=== PATIENT | female | born 1990 | race Caucasian/White ===

== ENCOUNTER 2018-04-30 12:54 | Emergency (ER) | payer MEDICAID ==
[2018-04-30] MEDS ORDERED: DULoxetine 30 MG Cap PO ONE (13:40)
--- NOTE | 2018-04-30 13:43 | EDM.PDOCBH ---
ED HPI GENERAL MEDICAL PROBLEM - General Chief Complaint: Behavioral/Psych Stated Complaint: WITHDRAWL FROM MEDICATION Time Seen by Provider: 04/30/18 13:38 Source of Information: Reports: Patient History Limitations: Reports: No Limitations - History of Present Illness INITIAL COMMENTS - FREE TEXT/NARRATIVE: Has been on Cymbalta x 1 year for fibromyalgia. Moved here 3 weeks ago and needs to get back on her meds. Ran out of meds a week ago. Having withdrawal and hot flashes. Onset: Gradual Duration: Getting Worse Severity: Moderate Improves with: Reports: None Worsens with: Reports: None Context: Reports: Other (ran out of meds) Associated Symptoms: Reports: Nausea/Vomiting, Weakness Generalized Pain Score (Numeric/FACES): 6 - Related Data Allergies Allergy/AdvReac Type Severity Reaction Status Date / Time morphine Allergy Hives Verified 07/19/14 11:42 Home Meds: Home Meds NK [No Known Home Meds] 07/19/14 [History] Past Medical History Respiratory History: Reports: Asthma Gastrointestinal History: Reports: Other (See Below) Other Gastrointestinal History: nausea and diarrhea Musculoskeletal History: Reports: Fibromyalgia Neurological History: Reports: Migraines Psychiatric History: Reports: Depression Dermatologic History: Reports: Eczema Social & Family History - Tobacco Use Smoking Status *Q: Current Every Day Smoker Years of Tobacco use: 10 Packs/Tins Daily: 1 - Caffeine Use Caffeine Use: Reports: Coffee - Recreational Drug Use Recreational Drug Use: No ED ROS GENERAL - Review of Systems Review Of Systems: See Below Constitutional: Reports: No Symptoms HEENT: Reports: No Symptoms Respiratory: Reports: No Symptoms Cardiovascular: Reports: Palpitations Endocrine: Reports: No Symptoms GI/Abdominal: Reports: Nausea, Vomiting (today) : Reports: No Symptoms Musculoskeletal: Reports: No Symptoms Skin: Reports: No Symptoms Psychiatric: Reports: Mood Lability Hematologic/Lymphatic: Reports: No Symptoms Immunologic: Reports: No Symptoms ED EXAM, BEHAVIORAL HEALTH - Physical Exam Exam: See Below Exam Limited By: No Limitations General Appearance: Alert, WD/WN, No Apparent Distress Ears: Normal External Exam, Normal Canal, Hearing Grossly Normal, Normal TMs Nose: Normal Inspection, Normal Mucosa, No Blood Throat/Mouth: Normal Inspection, Normal Lips, Normal Teeth, Normal Gums, Normal Oropharynx, Normal Voice, No Airway Compromise Head: Atraumatic, Normocephalic Neck: Normal Inspection, Supple, Non-Tender, Full Range of Motion Respiratory/Chest: No Respiratory Distress, Lungs Clear, Normal Breath Sounds, No Accessory Muscle Use, Chest Non-Tender Cardiovascular: Normal Peripheral Pulses, Regular Rate, Rhythm, No Edema, No Gallop, No JVD, No Murmur, No Rub GI/Abdominal: Normal Bowel Sounds, Soft, Non-Tender, No Organomegaly, No Distention, No Abnormal Bruit, No Mass Back Exam: Normal Inspection, Full Range of Motion, NT Extremities: Normal Inspection, Normal Range of Motion, Non-Tender, Normal Capillary Refill, No Pedal Edema Neurological: Alert, Normal Mood/Affect, CN II-XII Intact, Normal Cognition, Normal Gait, Normal Reflexes, No Motor/Sensory Deficits, Oriented x 3 Psychiatric: Other (mood labile, requests to resume meds) COURSE, BEHAVIORAL HEALTH COMP - Course Vital Signs: Last Vital Signs Temp 97.4 F 04/30/18 13:24 Pulse 95 04/30/18 13:24 Resp 18 04/30/18 13:24 BP 137/80 04/30/18 13:24 Pulse Ox Departure - Departure Time of Disposition: 13:43 Disposition: Home, Self-Care 01 Condition: Good Clinical Impression: Fibromyalgia - Discharge Information *PRESCRIPTION DRUG MONITORING PROGRAM REVIEWED*: Not Applicable *COPY OF PRESCRIPTION DRUG MONITORING REPORT IN PATIENT JUAN R: Not Applicable Instructions: Myofascial Pain Syndrome and Fibromyalgia Referrals: PCP,None [Primary Care Provider] - Additional Instructions: Cymbalta 60mg po given today in ER. Pt to resume meds. Discussed timing of meds and the need to establish with primary care. - Problem List & Annotations (1) Fibromyalgia SNOMED Code(s): 070168388 Code(s): M79.7 - FIBROMYALGIA Status: Acute Priority: Low Current Visit : Yes
== END 2018-04-30 14:43 | disposition home or self-care (01) ==
LOC: JP.ED 12:54
DX: M79.7 Fibromyalgia (principal); J45.909 Unspecified asthma, uncomplicated; F17.210 Nicotine dependence, cigarettes, uncomplicated; Z88.5 Allergy status to narcotic agent; Z79.899 Other long term (current) drug therapy
CPT/HCPCS: 99283; A9270

== ENCOUNTER 2020-04-09 08:49 | Emergency (ER) | payer MEDICAID ==
--- NOTE | 2020-04-09 09:25 | EDM.PDOC ---
ED HPI GENERAL MEDICAL PROBLEM - General Chief Complaint: Respiratory Problem Stated Complaint: SOB Time Seen by Provider: 04/09/20 09:06 Source of Information: Reports: Patient History Limitations: Reports: No Limitations - History of Present Illness INITIAL COMMENTS - FREE TEXT/NARRATIVE: 29-year-old female who is a chronic fairly heavy smoker, getting half a day, has had 10 days to 14 days of increasing shortness of breath, wheezing, cough, generalized malaise and body aches. No fevers or chills. She is concerned about the possibility of COVID. No sore throat. This morning she woke up, hurt all over and had a moderate headache and a pressure in her anterior chest so instead of going to work she came here. She did take an inhaler dose of albuterol at 7 AM. Onset: Gradual Duration: Week(s): (2 weeks) Associated Symptoms: Reports: Cough, Headaches, Shortness of Breath, Other (Generalized malaise and body aches). Denies: Fever/Chills Chest Pain Score (Numeric/FACES): 6 - Related Data Allergies Allergy/AdvReac Type Severity Reaction Status Date / Time morphine Allergy Hives Verified 04/09/20 08:56 Home Meds: Home Meds Albuterol [Ventolin HFA] 2 puff INH Q4H PRN 04/09/20 [History] Azithromycin [Zithromax] 250 mg PO DAILY 5 Days #6 tablet 04/09/20 [Rx] Past Medical History Respiratory History: Reports: Asthma Gastrointestinal History: Reports: Other (See Below) Other Gastrointestinal History: nausea and diarrhea Musculoskeletal History: Reports: Fibromyalgia Neurological History: Reports: Migraines Psychiatric History: Reports: Depression Dermatologic History: Reports: Eczema Social & Family History - Tobacco Use Smoking Status *Q: Current Every Day Smoker Years of Tobacco use: 12 Packs/Tins Daily: 1.5 - Caffeine Use Caffeine Use: Reports: Coffee, Energy Drinks - Recreational Drug Use Recreational Drug Use: No ED ROS GENERAL - Review of Systems Review Of Systems: See Below Constitutional: Reports: Malaise, Weakness. Denies: Fever, Chills HEENT: Denies: Throat Pain Respiratory: Reports: Shortness of Breath, Cough. Denies: Sputum Cardiovascular: Reports: Chest Pain Endocrine: Reports: Fatigue GI/Abdominal: Denies: Nausea, Vomiting : Reports: No Symptoms Musculoskeletal: Reports: Muscle Pain (Generalized muscle aches) Skin: Reports: No Symptoms Neurological: Reports: Headache ED EXAM, GENERAL - Physical Exam Exam: See Below Exam Limited By: No Limitations General Appearance: Alert, No Apparent Distress Eye Exam: Bilateral Eye: Normal Inspection Head: Atraumatic Respiratory/Chest: No Respiratory Distress, Lungs Clear Cardiovascular: Regular Rate, Rhythm. No: Extra Beats GI/Abdominal: Soft, Non-Tender Extremities: Normal Inspection. No: Pedal Edema Neurological: Alert, Oriented Course - Vital Signs Last Recorded V/S: Last Vital Signs Temp 96.6 F L 04/09/20 09:01 Pulse 90 04/09/20 09:01 Resp 14 04/09/20 09:01 BP 127/79 04/09/20 09:01 Pulse Ox 96 04/09/20 09:01 - Orders/Labs/Meds Orders: Active Orders 24 hr Category Date Time Status CORONAVIRUS COVID-19, RAY Stat Lab 04/09/20 09:22 Ordered - Re-Assessments/Exams Free Text/Narrative Re-Assessment/Exam: 04/09/20 09:23 Vitals are completely normal, pulse is 88, O2 saturations 96 to 98% on room air and respiratory rate normal. Temperature is 96.6. On exam I can only elicit wheezing on forced expiration. Patient has had bacterial bronchitis in the past which "did respond" to antibiotics, she is not only concerned about that but the possibility of COVID. A COVID test was drawn, she will be placed on Zithromax over the weekend and recheck with her primary provider next week if not improving satisfactorily. She needs to cut back on her smoking, and a daily dose of preventative asthma medication such as Advair or Symbicort may be worthwhile. She can do this with her primary next week. Departure - Departure Time of Disposition: 09:45 Disposition: Home, Self-Care 01 Clinical Impression: Bronchitis - Discharge Information Prescriptions: Azithromycin [Zithromax] 250 mg PO DAILY 5 Days #6 tablet Instructions: Acute Bronchitis, Adult, [id number] Referrals: PCP,None [Primary Care Provider] - Forms: ED Department Discharge Care Plan Goals: Take antibiotic as prescribed through the weekend, try to reduce smoking and get plenty of rest and fluids. Recheck with your primary provider next week to discuss preventative treatment for asthma after your COVID test returns. Sepsis Event Note (ED) - Evaluation Sepsis Screening Result: No Definite Risk - Focused Exam Vital Signs: Vital Signs Temp Pulse Resp BP Pulse Ox 04/09/20 09:01 96.6 F L 90 14 127/79 96 - My Orders Last 24 Hours: My Active Orders 04/09/20 09:22 CORONAVIRUS COVID-19, RYA Stat - Assessment/Plan Last 24 Hours: My Active Orders 04/09/20 09:22 CORONAVIRUS COVID-19, RAY Stat
== END 2020-04-09 09:45 | disposition home or self-care (01) ==
LOC: JP.ED 08:49
DX: J40 Bronchitis, not specified as acute or chronic (principal); F17.210 Nicotine dependence, cigarettes, uncomplicated; Z88.5 Allergy status to narcotic agent; Z20.828 Contact with and (suspected) exposure to other viral communicable diseases
CPT/HCPCS: 99283; U0002

== ENCOUNTER 2020-10-07 16:00 | Emergency (ER) | payer MEDICAID ==
--- NOTE | 2020-10-07 16:14 | EDM.PDOC ---
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 She was sob and she did do a oximeter which was 88. She has a history of asthma but did not seem to be wheezing alot at the time. Onset: Today, Sudden Duration: Hour(s): Location: Reports: Chest, Other (pt has been on a recent [address] trip. ) Associated Symptoms: Reports: Other ( she is feeling tight in her chest. ) Chest Pain Score (Numeric/FACES): 5 - Related Data Allergies Allergy/AdvReac Type Severity Reaction Status Date / Time morphine Allergy Hives Verified 10/07/20 16:40 Home Meds: Home Meds Albuterol [Ventolin HFA] 2 puff INH Q4H PRN 04/09/20 [History] Fluticasone Propion/Salmeterol [Advair Hfa 45-21 Mcg Inhaler] 2 puff IH BID 10/07/20 [History] Past Medical History Respiratory History: Reports: Asthma Gastrointestinal History: Reports: Other (See Below) Other Gastrointestinal History: nausea and diarrhea Musculoskeletal History: Reports: Fibromyalgia Neurological History: Reports: Migraines Psychiatric History: Reports: Depression Dermatologic History: Reports: Eczema Social & Family History - Caffeine Use Caffeine Use: Reports: Coffee, Energy Drinks ED ROS GENERAL - Review of Systems Review Of Systems: See Below Constitutional: Reports: No Symptoms HEENT: Reports: No Symptoms Respiratory: Reports: Shortness of Breath, Other ( tight in the middle of the chest. ) Cardiovascular: Reports: Dyspnea on Exertion, Lightheadedness Endocrine: Reports: No Symptoms GI/Abdominal: Reports: No Symptoms : Reports: No Symptoms Musculoskeletal: Reports: No Symptoms Skin: Reports: No Symptoms ED EXAM, GENERAL - Physical Exam Exam: See Below Free Text/Narrative:: pt arrived feeling tightness in her chest. She has a history of a 10 hour car ride recentyly there was concern regarding a pulmonary emboli. She was very lite headed and nearly passed out. Exam Limited By: No Limitations General Appearance: Alert, Anxious, Mild Distress Ears: Normal TMs Nose: Normal Inspection Throat/Mouth: Normal Inspection Head: Atraumatic Neck: Normal Inspection Respiratory/Chest: No Respiratory Distress, Other (pt had o2 sATS IN THE 100 % RANGE) Cardiovascular: Regular Rate, Rhythm GI/Abdominal: Soft, Non-Tender (Female) Exam: Deferred Rectal (Female) Exam: Deferred Back Exam: Normal Inspection Extremities: Normal Inspection, Other (NO TENDERNESS PRESENT) Neurological: Alert, Oriented, Normal Cognition Psychiatric: Anxious Course - Vital Signs Last Recorded V/S: Last Vital Signs Temp 36.2 C 10/07/20 16:38 Pulse 74 10/07/20 17:51 Resp 10 L 10/07/20 17:51 BP 109/66 10/07/20 17:51 Pulse Ox 98 10/07/20 17:51 Orthostatic Blood Pressure [ 109/68 Standing] Orthostatic Blood Pressure [ 123/72 Sitting] Orthostatic Blood Pressure [ 108/64 Supine] - Orders/Labs/Meds Orders: Active Orders 24 hr Category Date Time Status EKG Documentation Completion [RC] ASDIRECTED Care 10/07/20 16:25 Active Orthostatic Vital Signs [RC] ASDIRECTED Care 10/07/20 16:27 Active Chest 1V Frontal [CR] Stat Exams 10/07/20 16:24 Taken COVID-19/FLU A+B/RSV [MOLEC] Stat Lab 10/07/20 17:42 Received EKG 12 Lead [EK] Routine Ther 10/07/20 16:25 Ordered Labs: Laboratory Tests 10/07/20 10/07/20 10/07/20 Range/Units 16:28 16:28 16:28 WBC 16.2 H (4.5-11.0) K/uL RBC 4.23 (3.30-5.50) M/uL Hgb 13.6 (12.0-15.0) g/dL Hct 41.4 (36.0-48.0) % MCV 98 (80-98) fL MCH 32 H (27-31) pg MCHC 33 (32-36) % Plt Count 436 H (150-400) K/uL Neut % (Auto) 70 H (36-66) % Lymph % (Auto) 21 L (24-44) % Sum[place] % (Auto) 8 H (2-6) % Eos % (Auto) 1 L (2-4) % Baso % (Auto) 0 (0-1) % D-Dimer, Quantitative 206.08 (0.0-500.0) ng/mL Sodium 139 L (140-148) mmol/L Potassium 3.8 (3.6-5.2) mmol/L Chloride 103 (100-108) mmol/L Carbon Dioxide 27 (21-32) mmol/L Anion Gap 12.8 (5.0-14.0) mmol/L BUN 8 (7-18) mg/dL Creatinine 0.7 (0.6-1.0) mg/dL Est Cr Clr Drug Dosing 117.47 mL/min Estimated GFR (MDRD) > 60 (>60) Glucose 91 (74-106) mg/dL Calcium 9.4 (8.5-10.1) mg/dL Total Bilirubin 0.2 (0.2-1.0) mg/dL AST 12 L (15-37) U/L ALT 26 (12-78) U/L Alkaline Phosphatase 76 (46-116) U/L Troponin I (0.000-0.056) ng/mL Total Protein 7.4 (6.4-8.2) g/dL Albumin 4.0 (3.4-5.0) g/dL Globulin 3.4 (2.3-3.5) g/dL Albumin/Globulin Ratio 1.2 (1.2-2.2) Urine Color (YELLOW) Urine Appearance (CLEAR) Urine pH (5.0-8.0) Ur Specific Garrison (1.008-1.030) Urine Protein (NEGATIVE) mg/dL Urine Glucose (UA) (NEGATIVE) mg/dL Urine Ketones (NEGATIVE) mg/dL Urine Occult Blood (NEGATIVE) Urine Nitrite (NEGATIVE) Urine Bilirubin (NEGATIVE) Urine Urobilinogen (0.2-1.0) EU/dL Ur Leukocyte Esterase (NEGATIVE) Urine RBC (0-5) Urine WBC (0-5) Ur Epithelial Cells Amorphous Sediment Urine Bacteria Urine Mucus Urine Other 10/07/20 10/07/20 Range/Units 16:28 17:04 WBC (4.5-11.0) K/uL RBC (3.30-5.50) M/uL Hgb (12.0-15.0) g/dL Hct (36.0-48.0) % MCV (80-98) fL MCH (27-31) pg MCHC (32-36) % Plt Count (150-400) K/uL Neut % (Auto) (36-66) % Lymph % (Auto) (24-44) % Sumter % (Auto) (2-6) % Eos % (Auto) (2-4) % Baso % (Auto) (0-1) % D-Dimer, Quantitative (0.0-500.0) ng/mL Sodium (140-148) mmol/L Potassium (3.6-5.2) mmol/L Chloride (100-108) mmol/L Carbon Dioxide (21-32) mmol/L Anion Gap (5.0-14.0) mmol/L BUN (7-18) mg/dL Creatinine (0.6-1.0) mg/dL Est Cr Clr Drug Dosing mL/min Estimated GFR (MDRD) (>60) Glucose (74-106) mg/dL Calcium (8.5-10.1) mg/dL Total Bilirubin (0.2-1.0) mg/dL AST (15-37) U/L ALT (12-78) U/L Alkaline Phosphatase (46-116) U/L Troponin I < 0.017 (0.000-0.056) ng/mL Total Protein (6.4-8.2) g/dL Albumin (3.4-5.0) g/dL Globulin (2.3-3.5) g/dL Albumin/Globulin Ratio (1.2-2.2) Urine Color Yellow (YELLOW) Urine Appearance Clear (CLEAR) Urine pH 6.0 (5.0-8.0) Ur Specific Garrison 1.015 (1.008-1.030) Urine Protein Negative (NEGATIVE) mg/dL Urine Glucose (UA) Negative (NEGATIVE) mg/dL Urine Ketones Negative (NEGATIVE) mg/dL Urine Occult Blood Moderate H (NEGATIVE) Urine Nitrite Negative (NEGATIVE) Urine Bilirubin Negative (NEGATIVE) Urine Urobilinogen 0.2 (0.2-1.0) EU/dL Ur Leukocyte Esterase Negative (NEGATIVE) Urine RBC 5-10 H (0-5) Urine WBC 0-5 (0-5) Ur Epithelial Cells Occasional Amorphous Sediment Occasional Urine Bacteria Occasional Urine Mucus Occasional Urine Other - Re-Assessments/Exams Free Text/Narrative Re-Assessment/Exam: 10/07/20 17:51 PT HAD A NORMAL DDIMER. hER CHEST XRAY IS CLEAR. sHE HAS NO WHEEZING, HER EKG LOOKS NORMAL. NORMAL SINUS RHYTHM NO ST CHANGES. hER TROP IS NEG. hER ORTHOSTATICS SHOW A LOW BP BUT NOT A BIG DROP WHEN SHE STANDS. sHE WILL HAVE A COVID 19 TEST DONE. 10/07/20 17:53 Departure - Departure Time of Disposition: 18:52 Disposition: Home, Self-Care 01 Condition: Fair Clinical Impression: Chest wall pain, Hypotension - Discharge Information Referrals: Minerva Holbrook PA-C [Primary Care Provider] - Forms: ED Department Discharge Care Plan Goals: PUSH FLUIDS, MOTRIN 600MG TID, CONT SAME ASTHMA MEDS RTC IF ONGOING PROBLEMS NO WORK TOMORROW. Sepsis Event Note (ED) - Focused Exam Vital Signs: Vital Signs Temp Pulse Resp BP Pulse Ox 10/07/20 17:51 74 10 L 109/66 98 10/07/20 16:38 36.2 C 89 16 110/73 98 10/07/20 16:12 36.2 C 89 16 110/73 98 - My Orders Last 24 Hours: My Active Orders 10/07/20 16:24 Chest 1V Frontal [CR] Stat 10/07/20 16:25 EKG Documentation Completion [RC] ASDIRECTED EKG 12 Lead [EK] Routine 10/07/20 16:27 Orthostatic Vital Signs [RC] ASDIRECTED 10/07/20 17:42 COVID-19/FLU A+B/RSV [MOLEC] Stat - Assessment/Plan Last 24 Hours: My Active Orders 10/07/20 16:24 Chest 1V Frontal [CR] Stat 10/07/20 16:25 EKG Documentation Completion [RC] ASDIRECTED EKG 12 Lead [EK] Routine 10/07/20 16:27 Orthostatic Vital Signs [RC] ASDIRECTED 10/07/20 17:42 COVID-19/FLU A+B/RSV [MOLEC] Stat
[2020-10-07 18:41] LABS: CORONAVIRUS COVID-19 NAA NEGATIVE (NEGATIVE)
--- NOTE | 2020-10-08 10:11 | CR ---
CHEST: Portable 10/07/2020 CLINICAL HISTORY:SOB COMPARISON:2006 FINDINGS: The heart size, pulmonary vascularity and hilar structures are normal. No infiltrate effusion or pneumothorax is seen. IMPRESSION: No acute cardiopulmonary process.
== END 2020-10-07 19:02 | disposition home or self-care (01) ==
LOC: JP.ED 16:00
DX: R07.89 Other chest pain (principal); I95.9 Hypotension, unspecified; J45.909 Unspecified asthma, uncomplicated; Z88.5 Allergy status to narcotic agent; Z79.899 Other long term (current) drug therapy; Z20.822 Contact with and (suspected) exposure to COVID-19
CPT/HCPCS: 0241U; 36415; 71045; 80053; 81001; 84484; 85025; 85379; 93005; 99285; 99284

== ENCOUNTER 2020-10-26 14:32 | Emergency (ER) | payer MEDICAID ==
--- NOTE | 2020-10-26 15:09 | EDM.PDOC ---
ED HPI GENERAL MEDICAL PROBLEM - General Chief Complaint: Neuro Symptoms/Deficits Stated Complaint: L SIDED NUMBNESS Time Seen by Provider: 10/26/20 14:45 Source of Information: Reports: Patient, Old Records, RN History Limitations: Reports: No Limitations - History of Present Illness INITIAL COMMENTS - FREE TEXT/NARRATIVE: 30 yo female patient of Dr. Hdz is being worked up for MS and has a brain MRI scheduled for 4 pm today. Bronwyn developed slowly progressive L facial and extremity weakness and numbness that began on Monday. She came here to the ER because it is getting hard to do her job and is worried about CVA. She does smoke. Has a + FHx of CAD and is using an IUD for contraception. 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: Musculoskeletal History: Reports: Fibromyalgia Neurological History: Reports: Migraines Psychiatric History: Reports: Depression Endocrine/Metabolic History: Reports: Hypothyroidism Hematologic History: Reports: None Immunologic History: Reports: None Oncologic (Cancer) History: Reports: None Dermatologic History: Reports: Eczema - Infectious Disease History Infectious Disease History: Reports: Chicken Pox, Influenza, Shingles - Past Surgical History GI Surgical History: Reports: Cholecystectomy Female Surgical History: Reports: Section Social & Family History - Tobacco Use Tobacco Use Status *Q: Current Every Day Tobacco User Years of Tobacco use: 13 Packs/Tins Daily: 1 - Caffeine Use Caffeine Use: Reports: Coffee - Recreational Drug Use Recreational Drug Use: No ED ROS GENERAL - Review of Systems Review Of Systems: See Below Constitutional: Reports: No Symptoms HEENT: Reports: No Symptoms Respiratory: Reports: No Symptoms Cardiovascular: Reports: No Symptoms GI/Abdominal: Reports: No Symptoms : Reports: No Symptoms Musculoskeletal: Reports: No Symptoms Skin: Reports: No Symptoms Neurological: Reports: Numbness (L sided), Weakness (L sided) ED EXAM, NEURO - Physical Exam Exam: See Below Exam Limited By: No Limitations General Appearance: Alert, WD/WN, No Apparent Distress Eye Exam: Bilateral Eye: EOMI, Normal Inspection, PERRL Ears: Normal External Exam, Normal Canal, Hearing Grossly Normal, Normal TMs Nose: Normal Inspection, No Blood Throat/Mouth: Normal Inspection, Normal Lips, Normal Oropharynx, Normal Voice, No Airway Compromise Head Exam: Atraumatic, Normocephalic Neck: Normal Inspection Respiratory/Chest: No Respiratory Distress, Lungs Clear, Normal Breath Sounds, No Accessory Muscle Use Cardiovascular: Regular Rate, Rhythm, No Edema GI/Abdominal: Normal Bowel Sounds, Soft, Non-Tender, No Distention Neurological: Alert, Normal Mood/Affect, CN II-XII Intact, Oriented x 3, Other (subjective L facial numbness without droop. Strength on L side is 4/5, and 5/5 on right.) Back Exam: Normal Inspection. No: CVA Tenderness (R), CVA Tenderness (L) Extremities: Normal Inspection, Normal Range of Motion, Non-Tender, No Pedal Edema Psychiatric: Normal Affect, Normal Mood Skin Exam: Warm, Dry, Intact, Normal Color, No Rash Course - Vital Signs Last Recorded V/S: Last Vital Signs Temp 36.7 C 10/26/20 14:40 Pulse 86 10/26/20 14:40 Resp 20 10/26/20 14:40 BP 136/79 10/26/20 14:40 Pulse Ox 97 10/26/20 14:40 - Re-Assessments/Exams Free Text/Narrative Re-Assessment/Exam: 10/26/20 15:09 MRI not available here today. Sx's seem more like MS than CVA, will discharge to go get her brain MRI. Departure - Departure Time of Disposition: 15:10 Disposition: Home, Self-Care 01 Condition: Fair Clinical Impression: Progressive neurologic decline - Discharge Information *PRESCRIPTION DRUG MONITORING PROGRAM REVIEWED*: Not Applicable *COPY OF PRESCRIPTION DRUG MONITORING REPORT IN PATIENT JUAN R: Not Applicable Referrals: Flora Wahtley DO [Primary Care Provider] - Additional Instructions: Get your MRI as scheduled. Return here for a drastic, abrupt change in your condition. F/U with Dr. Whatley tomorrow. Sepsis Event Note (ED) - Evaluation Sepsis Screening Result: No Definite Risk - Focused Exam Vital Signs: Vital Signs Temp Pulse Resp BP Pulse Ox 10/26/20 14:40 36.7 C 86 20 136/79 97
== END 2020-10-26 15:16 | disposition home or self-care (01) ==
LOC: JP.ED 14:32
DX: R29.90 Unspecified symptoms and signs involving the nervous system (principal); J45.909 Unspecified asthma, uncomplicated; F17.200 Nicotine dependence, unspecified, uncomplicated; Z79.899 Other long term (current) drug therapy; Z88.5 Allergy status to narcotic agent
CPT/HCPCS: 99283; 99284

== ENCOUNTER 2021-04-04 15:25 | Emergency (ER) | payer MEDICAID ==
--- NOTE | 2021-04-04 16:34 | EDM.PDOC ---
ED HPI GENERAL MEDICAL PROBLEM - General Chief Complaint: Neuro Symptoms/Deficits Stated Complaint: LEFT SIDE PARALYSIS AND HEADACHE Time Seen by Provider: 04/04/21 16:07 Source of Information: Reports: Patient, Family, RN Notes Reviewed History Limitations: Reports: No Limitations - History of Present Illness INITIAL COMMENTS - FREE TEXT/NARRATIVE: 30-year-old female presents emergency department today complaint of left-sided weakness, she states she does have a history of migraine headaches as well as multiple TIAs, she has been having the symptoms for the last 4 days, she states she has been having symptoms like this since high school has visited with multiple neurologists as well as hematology has been to [facility] and [facility]. She has yet to receive a formal diagnosis. She is currently in a study for multiple sclerosis. She was brought here by her family member concerned that she was having another stroke. She does take an aspirin, but takes no other stroke medications no blood pressure control no statin control she states this is because she is on a experimental medication for multiple sclerosis - Related Data Allergies Allergy/AdvReac Type Severity Reaction Status Date / Time morphine Allergy Hives Verified 04/04/21 15:40 Home Meds: Home Meds Albuterol [Ventolin HFA] 2 puff INH Q4H PRN 04/09/20 [History] Amantadine [Symmetrel] 1 tab PO BID 04/04/21 [History] Aspirin 1 tab PO DAILY 04/04/21 [History] Gabapentin [Neurontin] 1 cap PO TID 04/04/21 [History] Verapamil [Calan] 1 tab PO BID 04/04/21 [History] Past Medical History HEENT History: Reports: Allergic Rhinitis, Sinusitis Other HEENT History: sore throat past 5 months. fluid in ears Respiratory History: Reports: Asthma Gastrointestinal History: Reports: Cholelithiasis, Other (See Below) Other Gastrointestinal History: nausea and diarrhea Genitourinary History: Reports: Renal Calculus UNDER BASTER History: Reports: Musculoskeletal History: Reports: Fibromyalgia Neurological History: Reports: Migraines, TIA Psychiatric History: Reports: Depression Endocrine/Metabolic History: Reports: Hypothyroidism Hematologic History: Reports: None Immunologic History: Reports: None Oncologic (Cancer) History: Reports: None Dermatologic History: Reports: Eczema - Infectious Disease History Infectious Disease History: Reports: Chicken Pox, Influenza, Shingles - Past Surgical History GI Surgical History: Reports: Cholecystectomy Female Surgical History: Reports: Section Social & Family History - Tobacco Use Tobacco Use Status *Q: Current Every Day Tobacco User Years of Tobacco use: 15 Packs/Tins Daily: 1 - Caffeine Use Caffeine Use: Reports: Coffee ED ROS GENERAL - Review of Systems Review Of Systems: See Below Constitutional: Reports: No Symptoms HEENT: Reports: No Symptoms Respiratory: Reports: No Symptoms Cardiovascular: Reports: No Symptoms GI/Abdominal: Reports: No Symptoms Musculoskeletal: Reports: No Symptoms Skin: Reports: No Symptoms Neurological: Reports: Headache, Numbness, Tingling, Difficulty Walking, Weakness ED EXAM, NEURO - Physical Exam Exam: See Below Exam Limited By: No Limitations General Appearance: Alert, WD/WN, No Apparent Distress Respiratory/Chest: No Respiratory Distress Neurological: Alert, Normal Mood/Affect, CN II-XII Intact, No Motor/Sensory Deficits, Other (I did do strength on her and for power I felt she was 5 x 5 in the upper extremities however on the indigo vat tender cloth test I felt they were equivocal but then I felt her relax a little on the left side no difference on flexion or extension of the bicep. Ambulation she was able to ambulate but she states her susie) Course - Vital Signs Last Recorded V/S: Last Vital Signs Temp 97.0 F 04/04/21 16:03 Pulse 84 04/04/21 16:03 Resp 14 04/04/21 16:03 BP 142/91 H 04/04/21 16:03 Pulse Ox 98 04/04/21 16:03 Departure - Departure Time of Disposition: 16:33 Disposition: Home, Self-Care 01 Condition: Fair Clinical Impression: Migraine headache Qualifiers: Migraine type: without aura Status migrainosus presence: without status migrainosus Intractability: not intractable Qualified Code(s): G43.009 - Migraine without aura, not intractable, without status migrainosus - Discharge Information Instructions: Recurrent Migraine Headache, [id number] Referrals: Flora Whatley DO [Primary Care Provider] - Additional Instructions: Please contact your neurologist in the morning for further evaluation and treatment call return to the emergency department worsening of symptoms Sepsis Event Note (ED) - Evaluation Sepsis Screening Result: No Definite Risk - Focused Exam Vital Signs: Vital Signs Temp Pulse Resp BP Pulse Ox 04/04/21 16:03 97.0 F 84 14 142/91 H 98 - Assessment/Plan Plan: Assessment Acuity = acute Site and laterality = migraine complicated patient with history of multiple TIAs Etiology = unknown Manifestations = none Location of injury = Home Lab values = none Plan I did offer further treatment and further evaluation of which she declined she has been screened to contract neurology in the morning for follow-up. Her and her mother did get in a disagreement about treatment plan and why she is here. She became very frustrated and tearful when arguing with her mother. This note was dictated using [employer] voice recognition software please call with any questions on syntax or grammar.
== END 2021-04-04 17:17 | disposition home or self-care (01) ==
LOC: JP.ED 15:25
DX: G43.009 Migraine without aura, not intractable, without status migrainosus (principal); Z88.5 Allergy status to narcotic agent; Z79.82 Long term (current) use of aspirin; Z86.73 Personal history of transient ischemic attack (TIA), and cerebral infarction without residual deficits; Z72.0 Tobacco use
CPT/HCPCS: 99283

== ENCOUNTER 2022-01-03 19:11 | Emergency (ER) | payer MEDICAID ==
[2022-01-03] MEDS ORDERED: Ketorolac 30 MG/ML SDV IVPUSH ONE (19:40)
[2022-01-03] MEDS ORDERED: Haloperidol Lactate 5 MG/ML SDV IVPUSH ONE (19:40)
[2022-01-03] MEDS ORDERED: Sodium Chloride 0.9% 10 ML Syringe FLUSH PRN (19:40)
[2022-01-03] MEDS ORDERED: Prochlorperazine 10 MG/2 ML SDV IVPUSH ONE (19:40)
[2022-01-03] MEDS ORDERED: Sodium Chloride 0.9% 1,000 ML IV SCH (19:45)
[2022-01-03] MEDS ORDERED: LORazepam 2 MG/ML SDV IVPUSH ONE (20:22)
== END 2022-01-03 21:10 | disposition home or self-care (01) ==
LOC: JP.ED 19:11
DX: G43.909 Migraine, unspecified, not intractable, without status migrainosus (principal); Z88.5 Allergy status to narcotic agent; Z79.82 Long term (current) use of aspirin; Z72.0 Tobacco use; Z86.73 Personal history of transient ischemic attack (TIA), and cerebral infarction without residual deficits
CPT/HCPCS: 96374; 96375; 99283-25; 99284; J0780; J1630; J1885; J2060; J3490; J7030

== ENCOUNTER 2023-01-16 07:32 | Day surgery (SDC) | payer MEDICAID ==
[2023-01-16] MEDS ORDERED: Lactated Ringers 1,000 ML IV SCH (08:00)
[2023-01-16] MEDS ORDERED: fentaNYL 100 MCG/2 ML SDV ONE (09:35)
[2023-01-16] MEDS ORDERED: Propofol 200 MG/20 ML SDV ONE (09:35)
[2023-01-16] MEDS ORDERED: Midazolam 1 MG/ML 2 ML SDV ONE (09:36)
== END 2023-01-16 11:30 | disposition home or self-care (01) ==
LOC: JP.SDS 07:32
PROVIDERS: ATTEND Student in an Organized Health Care Education/Training Program
DX: K29.50 Unspecified chronic gastritis without bleeding (principal); K20.90 Esophagitis, unspecified without bleeding; K92.1 Melena; K58.9 Irritable bowel syndrome, unspecified; J44.9 Chronic obstructive pulmonary disease, unspecified; F17.200 Nicotine dependence, unspecified, uncomplicated; F41.9 Anxiety disorder, unspecified; F32.A Depression, unspecified; M79.7 Fibromyalgia; Z88.8 Allergy status to other drugs, medicaments and biological substances; Z88.6 Allergy status to analgesic agent
CPT/HCPCS: 43239; 81025; 88305; J2250; J2704; J3010; J7120

== ENCOUNTER 2023-05-25 01:41 | Emergency (ER) | payer MEDICAID ==
[2023-05-25] MEDS ORDERED: Ketorolac 15 MG/ML SDV IVPUSH ONE (01:57)
[2023-05-25] MEDS ORDERED: Prochlorperazine 10 MG/2 ML SDV IVPUSH ONE (01:57)
[2023-05-25] MEDS ORDERED: Sodium Chloride 0.9% 1,000 ML IV ONE (01:59)
== END 2023-05-25 03:14 | disposition home or self-care (01) ==
LOC: JP.ED 01:41
DX: G43.009 Migraine without aura, not intractable, without status migrainosus (principal); F17.210 Nicotine dependence, cigarettes, uncomplicated; Z86.73 Personal history of transient ischemic attack (TIA), and cerebral infarction without residual deficits; Z88.5 Allergy status to narcotic agent; Z88.6 Allergy status to analgesic agent; Z79.01 Long term (current) use of anticoagulants; Z79.899 Other long term (current) drug therapy
CPT/HCPCS: 96361; 96374; 96375; 99283; J0780; J1885; J7030